=== PATIENT | male | born 1990 | race Caucasian/White ===

== ENCOUNTER → 2024-09-14 | Day surgery (SDC) | payer OTHER ==
[~2024-09-14] VITALS: Ht 167.6 cm; Wt 74.8 kg
[2024-09-14] VITALS (7 sets, daily range): BP systolic 92–123; BP diastolic 47–84
[~2024-09-14] MED LIST: Dexamethasone Sodium Phospha 4 MG/ML VIAL IV ONE; Ketamine Hydrochloride 50 MG/5 ML SYRINGE IV ONE; Lactated Ringer's Solution 1,000 ML IV ONE; Lidocaine Hydrochloride 2% 5 ML SDV IV ONE; Midazolam Hydrochloride 2 MG/2 ML VIAL IV ONE; Ondansetron Hydrochloride 4 MG/2 ML VIAL IV ONE; PERCOCET 5-3251 EACH PO; PROPOFOL 200 MG/20 ML VIAL IV ONE; SEVOFLURANE 250 ML BOT INH ONE; ceFAZolin sodium/sodium chlor 20 ML IV ONE; fentaNYL CITRATE 100 MCG/2 ML VIAL IV ONE
[2024-09-14 11:26] LABS: BUN 11 mg/dl (9-23); CHLORIDE 107 mmol/L (98-107)
== END | disposition home or self-care (01) ==
LOC: SDC 09-11 12:30
PROVIDERS: ATTEND Orthopaedic Surgery
DX: S62.221A Displaced Rolando's fracture, right hand, initial encounter for closed fracture (principal); F12.90 Cannabis use, unspecified, uncomplicated; X58.XXXA Exposure to other specified factors, initial encounter; Y93.89 Activity, other specified; Y92.89 Other specified places as the place of occurrence of the external cause; Y99.8 Other external cause status

== ENCOUNTER → 2024-09-27 | Outpatient (CLI) | payer OTHER ==
[~2024-09-27] MED LIST changes: -Dexamethasone Sodium Phospha 4 MG/ML VIAL IV ONE; -Ketamine Hydrochloride 50 MG/5 ML SYRINGE IV ONE; -Lactated Ringer's Solution 1,000 ML IV ONE; -Lidocaine Hydrochloride 2% 5 ML SDV IV ONE; -Midazolam Hydrochloride 2 MG/2 ML VIAL IV ONE; -Ondansetron Hydrochloride 4 MG/2 ML VIAL IV ONE; -PROPOFOL 200 MG/20 ML VIAL IV ONE; -SEVOFLURANE 250 ML BOT INH ONE; -ceFAZolin sodium/sodium chlor 20 ML IV ONE; -fentaNYL CITRATE 100 MCG/2 ML VIAL IV ONE
== END | disposition home or self-care (01) ==
LOC: ORTHO 01:47
PROVIDERS: ATTEND Orthopaedic Surgery
DX: S62.221D Displaced Rolando's fracture, right hand, subsequent encounter for fracture with routine healing (principal); X58.XXXD Exposure to other specified factors, subsequent encounter

== ENCOUNTER → 2024-10-11 | Outpatient (CLI) | payer OTHER | END | disposition home or self-care (01) | LOC: ORTHO 03:07 | PROVIDERS: ATTEND Orthopaedic Surgery | DX: S62.221D Displaced Rolando's fracture, right hand, subsequent encounter for fracture with routine healing (principal); X58.XXXD Exposure to other specified factors, subsequent encounter ==

== ENCOUNTER → 2024-10-25 | Outpatient (CLI) | payer OTHER | END | disposition home or self-care (01) | LOC: ORTHO 01:32 | PROVIDERS: ATTEND Orthopaedic Surgery | DX: S62.221D Displaced Rolando's fracture, right hand, subsequent encounter for fracture with routine healing (principal); X58.XXXD Exposure to other specified factors, subsequent encounter ==